=== PATIENT | male | born 1955 | race African-American/Black ===

== ENCOUNTER 2021-05-27 15:23 | Inpatient (IN) | payer SELFPAY ==
[~2021-05-27] VITALS: Ht 170.2 cm; Wt 66.2 kg
[2021-05-27 16:38] LABS: BASOPHILS % 0.5 % (0.0-2.0); EOSINOPHILS % 0.4 % (0.0-5.0); HEMATOCRIT. 40.7 % (42.0-52.0); HEMOGLOBIN. 13.6 g/dL (14.0-18.0); MEAN CORPUSCULAR HEMOGLOBIN 28.8 pg (28.0-32.0); MEAN CORPUSCULAR VOLUME 86.6 fL (80.0-94.0); MEAN PLATELET VOLUME 8.3 fl (7.4-10.4); MONOCYTES % 5.4 % (2.0-8.0); NEUTROPHILS % 79.7 % (40.0-76.0); PLATELET 242 x1000/uL (130-400); RED CELL DISTRIBUTION WIDTH 12.3 % (11.6-14.6)
[2021-05-27 16:45] LABS: CHLORIDE 105 mEq/L (98-107)
[2021-05-27 20:30] LABS: CLARITY URINE CLEAR (CLEAR); COLOR URINE YELLOW (YELLOW); KETONES URINE 1+ (NEGATIVE); LEUKOCYTE ESTERASE URINE NEGATIVE (NEGATIVE); NITRITE URINE NEGATIVE (NEGATIVE); OCCULT BLOOD URINE NEGATIVE (NEGATIVE); PROTEIN URINE NEGATIVE (NEGATIVE); SPECIFIC GRAVITY URINE 1.015 (1.005-1.030); UROBILINOGEN URINE 0.2 E.U./dL (0.2-1.0)
[2021-05-27] MEDS ORDERED: CLOPIDOGREL 75MG TABLET PO ONE (21:30)
[2021-05-27] MEDS ORDERED: ASPIRIN 325MG EC TABLET PO ONE (21:30)
[2021-05-27] MEDS ORDERED: ACETAMINOPHEN 325MG TABLET PO PRN (22:45)
[2021-05-28 07:05] LABS: CHLORIDE 106 mEq/L (98-107)
[2021-05-28 07:06] LABS: HEMATOCRIT. 41.5 % (42.0-52.0); HEMOGLOBIN. 14.2 g/dL (14.0-18.0); LYMPHOCYTES % 24.6 % (20.0-50.0); MEAN CORPUSCULAR HEMOGLOBIN 29.6 pg (28.0-32.0); MEAN CORPUSCULAR VOLUME 86.4 fL (80.0-94.0); MEAN PLATELET VOLUME 8.3 fl (7.4-10.4); MONOCYTES % 10.1 % (2.0-8.0); NEUTROPHILS % 62.3 % (40.0-76.0); PLATELET 230 x1000/uL (130-400); RED CELL DISTRIBUTION WIDTH 12.6 % (11.6-14.6)
[2021-05-28 07:12] LABS: LDL CHOLESTEROL 117 mg/dL (5-100)
[2021-05-28 07:14] LABS: HDL CHOLESTEROL 33 mg/dL (40-59)
[2021-05-28 11:11] LABS: VITAMIN B12 SERUM 515 pg/mL (211-911)
[2021-05-28 11:38] VITALS: BP 146/92
[2021-05-28 12:00] VITALS: BP_SYST 131; BP_SYST 87; BP_DIAS 64; BP_DIAS 88
[2021-05-28] MEDS: ASPIRIN 81MG EC TABLET PO SCH (12:46)
[2021-05-28] MEDS: CLOPIDOGREL 75MG TABLET PO SCH (12:46)
[2021-05-28] MEDS ORDERED: GADOTERATE MEGLUMINE 5 MMOL/10 ML VIAL IV ONE (16:18)
[2021-05-28] MEDS ORDERED: DEXTROSE 50% WATER 50ML SYRINGE IV PRN (18:15)
[2021-05-28 19:38] VITALS: BP 135/90
[2021-05-28 20:00] VITALS: BP 121/68
[2021-05-28] MEDS ORDERED: HYDROCODONE/ACETAMINOPHEN 5/325MG TABLET PO PRN (20:15)
[2021-05-28] MEDS ORDERED: NALOXONE HCL 0.4MG/ML VIAL IV PRN (20:30)
[2021-05-28] MEDS: BLOOD SUGAR DIAGNOSTIC STRIP TEST SCH (20:44)
[2021-05-28] MEDS: ATORVASTATIN CALCIUM 40MG TABLET PO SCH (21:00)
[2021-05-28] MEDS: INSULIN LISPRO 100 UNITS/ML SUBCUT SCH (21:00)
[2021-05-29] VITALS: BP 100/67
[2021-05-29] MEDS ORDERED: METF-416 PO (00:17)
[2021-05-29] MEDS ORDERED: AMLO5TAB88 PO (00:17)
[2021-05-29] MEDS ORDERED: LISI40TA13 PO (00:17)
[2021-05-29] MEDS ORDERED: METO25TA6 PO (00:17)
[2021-05-29 04:00] VITALS: BP 106/62
[2021-05-29] MEDS: BLOOD SUGAR DIAGNOSTIC STRIP TEST SCH ×4 (06:03→21:28)
[2021-05-29] MEDS: INSULIN LISPRO 100 UNITS/ML SUBCUT SCH ×4 (06:03→21:32)
[2021-05-29 07:10] LABS: EOSINOPHILS % 2.4 % (0.0-5.0); HEMATOCRIT. 39.1 % (42.0-52.0); HEMOGLOBIN. 13.4 g/dL (14.0-18.0); LYMPHOCYTES % 32.2 % (20.0-50.0); MEAN CORPUSCULAR HEMOGLOBIN 29.7 pg (28.0-32.0); MEAN CORPUSCULAR VOLUME 86.3 fL (80.0-94.0); MEAN PLATELET VOLUME 8.3 fl (7.4-10.4); MONOCYTES % 11.7 % (2.0-8.0); NEUTROPHILS % 52.7 % (40.0-76.0); PLATELET 214 x1000/uL (130-400); RED BLOOD CELL COUNT 4.52 mill/uL (4.7-6.1); RED CELL DISTRIBUTION WIDTH 12.5 % (11.6-14.6)
[2021-05-29 07:15] LABS: CHLORIDE 110 mEq/L (98-107)
[2021-05-29 08:00] VITALS: BP 145/87
[2021-05-29] MEDS ORDERED: INFLUENZA VACCINE 05/PF 0.5 ML SYRINGE IM ONE (09:00)
[2021-05-29] MEDS ORDERED: PNEUMOCOCCAL 23-VAL P-SAC VAC 0.5 ML IM ONE (09:00)
[2021-05-29] MEDS: CLOPIDOGREL 75MG TABLET PO SCH (09:07)
[2021-05-29] MEDS: ASPIRIN 81MG EC TABLET PO SCH (09:07)
[2021-05-29 12:00] VITALS: BP 133/86
[2021-05-29] MEDS: ENOXAPARIN 40MG/0.4ML SYR SUBCUT SCH (12:40)
[2021-05-29] MEDS: SODIUM CHLORIDE 0.45% 1,000 ML IV SCH ×2 (12:44→23:46)
[2021-05-29] MEDS ORDERED: POTASSIUM CHLORIDE 20MEQ TABLET SR PO NR (13:00)
[2021-05-29 16:00] VITALS: BP 133/81
[2021-05-29 20:00] VITALS: BP 158/88
[2021-05-29] MEDS: ATORVASTATIN CALCIUM 40MG TABLET PO SCH (21:28)
[2021-05-30] VITALS: BP 133/87
[2021-05-30 04:00] VITALS: BP 162/115
[2021-05-30] MEDS ORDERED: CLONIDINE 0.1MG TABLET PO NR (05:00)
[2021-05-30] MEDS: BLOOD SUGAR DIAGNOSTIC STRIP TEST SCH ×4 (05:58→21:25)
[2021-05-30] MEDS: INSULIN LISPRO 100 UNITS/ML SUBCUT SCH ×4 (06:01→21:26)
[2021-05-30 07:23] LABS: BASOPHILS % 0.9 % (0.0-2.0); EOSINOPHILS % 2.5 % (0.0-5.0); HEMATOCRIT. 37.2 % (42.0-52.0); HEMOGLOBIN. 12.7 g/dL (14.0-18.0); MEAN CORPUSCULAR HEMOGLOBIN 29.5 pg (28.0-32.0); MEAN CORPUSCULAR VOLUME 86.4 fL (80.0-94.0); MEAN PLATELET VOLUME 8.6 fl (7.4-10.4); MONOCYTES % 12.1 % (2.0-8.0); NEUTROPHILS % 57.5 % (40.0-76.0); PLATELET 207 x1000/uL (130-400); RED CELL DISTRIBUTION WIDTH 12.3 % (11.6-14.6)
[2021-05-30 08:00] VITALS: BP 156/82
[2021-05-30 08:07] LABS: CHLORIDE 109 mEq/L (98-107)
[2021-05-30] MEDS: LISINOPRIL 40MG TABLET PO SCH (08:15)
[2021-05-30] MEDS: CLOPIDOGREL 75MG TABLET PO SCH (08:15)
[2021-05-30] MEDS: ASPIRIN 81MG EC TABLET PO SCH (08:16)
[2021-05-30] MEDS: METOPROLOL TARTRATE 25MG TABLET PO SCH ×2 (08:16→20:33)
[2021-05-30] MEDS ORDERED: AMLODIPINE 5MG TABLET PO SCH (09:00)
[2021-05-30] MEDS: ENOXAPARIN 40MG/0.4ML SYR SUBCUT SCH (11:45)
[2021-05-30 12:00] VITALS: BP 122/68
[2021-05-30 16:00] VITALS: BP 114/77
[2021-05-30] MEDS: SODIUM CHLORIDE 0.45% 1,000 ML IV SCH (17:08)
[2021-05-30 20:00] VITALS: BP 150/84
[2021-05-30] MEDS: ATORVASTATIN CALCIUM 40MG TABLET PO SCH (20:33)
[2021-05-30] MEDS: AMLODIPINE 5MG TABLET PO SCH (20:34)
[2021-05-31] VITALS: BP 113/69
[2021-05-31 04:00] VITALS: BP 128/88
[2021-05-31] MEDS: SODIUM CHLORIDE 0.45% 1,000 ML IV SCH (06:11)
[2021-05-31] MEDS: BLOOD SUGAR DIAGNOSTIC STRIP TEST SCH ×3 (07:22→16:36)
[2021-05-31 08:00] VITALS: BP 141/84
[2021-05-31] MEDS: METOPROLOL TARTRATE 25MG TABLET PO SCH (08:50)
[2021-05-31] MEDS: CLOPIDOGREL 75MG TABLET PO SCH (08:50)
[2021-05-31] MEDS: LISINOPRIL 40MG TABLET PO SCH (08:50)
[2021-05-31] MEDS: ASPIRIN 81MG EC TABLET PO SCH (08:51)
[2021-05-31] MEDS: AMLODIPINE 5MG TABLET PO SCH (08:51)
[2021-05-31] MEDS: INSULIN LISPRO 100 UNITS/ML SUBCUT SCH ×3 (08:52→16:42)
[2021-05-31] MEDS: METFORMIN HCL 500MG TABLET PO SCH ×2 (11:25→16:41)
[2021-05-31] MEDS: ENOXAPARIN 40MG/0.4ML SYR SUBCUT SCH (11:25)
[2021-05-31 12:00] VITALS: BP 121/74
[2021-05-31] MEDS ORDERED: EMPA25TA MT (12:25)
[2021-05-31 12:49] VITALS: BP 130/84
[2021-05-31 16:00] VITALS: BP 145/83
[2021-05-31] MEDS ORDERED: INSULIN GLARGINE UD 100 UNITS/ML SYR SUBCUT SCH (22:00)
== END 2021-05-31 18:22 | disposition home or self-care (01) | DRG 45 ==
LOC: ER 15:33 → MICUSO 23:59 → 7EST 05-28 10:00 → 5WST 05-30 15:59
PROVIDERS: ADMIT Internal Medicine; ATTEND Internal Medicine
DX: I63.9 Cerebral infarction, unspecified (principal); E86.0 Dehydration; E11.9 Type 2 diabetes mellitus without complications; E78.5 Hyperlipidemia, unspecified; R55 Syncope and collapse; E87.6 Hypokalemia; I10 Essential (primary) hypertension; H53.8 Other visual disturbances; Z20.822 Contact with and (suspected) exposure to COVID-19; I25.10 Atherosclerotic heart disease of native coronary artery without angina pectoris; Z79.02 Long term (current) use of antithrombotics/antiplatelets; Z79.82 Long term (current) use of aspirin; Z79.84 Long term (current) use of oral hypoglycemic drugs; Z82.3 Family history of stroke; Z86.73 Personal history of transient ischemic attack (TIA), and cerebral infarction without residual deficits; Z95.5 Presence of coronary angioplasty implant and graft
CPT/HCPCS: 36415; 70544; 70549; 70553; 71045; 80048; 80053; 80061; 81003; 82607; 82962; 83036; 84443; 84484; 85025; 87426; 90686; 90732; 93005; 93306; 95816; 97162; 97166; 97530; 97535; 99291; A9577; J1650; J1815